=== PATIENT | female | born 1955 | race African-American/Black ===

== ENCOUNTER → 2016-12-18 | Outpatient (CLI) | payer MEDICAID ==
[~2016-12-18] MED LIST: AMARYL2 MG PO; AMLODIPINE BESY10 MG PO; BENADRYL25 MG PO; COZAAR100 MG PO; DAYPRO600 M1 PO; GLIMEPIRIDE1 MG PO; LASIX20 MG PO; LEVOTHYROXINE100 MCG PO; LOPRESSOR PO; LOSARTAN POTAS100 MG PO; METFORMIN HCL500 M1 PO; METOPROLOL TAR100 MG PO; MOBIC PO; OSCAL PLUS D; PERCOCET5/325 PO; PRAVASTATIN SOD40 MG PO; SYNTHROID125 PO; TRADJENTA5 MG PO
--- NOTE | ~2016-12-18 | EKG ---
PATIENT: KATHARINA DOHERTY UNIT #: [id number] Ventricular Rate: 63 BPM Atrial Rate: 63 BPM P-R Interval: 156 ms QRS Duration: 80 ms Q-T Interval: 400 ms QTC Calculation(Bezet): 409 ms P Starford: 16 degrees Calculated R Starford: 7 degrees Calculated T Starford: 62 degrees Diagnosis Line: Normal sinus rhythm Diagnosis Line: Minimal voltage criteria for LVH, may be normal Diagnosis Line: variant Diagnosis Line: Inferior infarct , age undetermined Diagnosis Line: Anterior infarct (cited on or before 11-APR-2016) Diagnosis Line: Abnormal ECG Diagnosis Line: When compared with ECG of 11-APR-2016 12:45, Diagnosis Line: Inferior infarct is now Present Diagnosis Line: Diagnosis Line: Confirmed by JOSE TANG MD[facility] ([id number] on Diagnosis Line: 12/18/2016 2:29:02 PM INTERPRETING MD: KITTY SCHWARZ
[2016-12-18 14:40] LABS: BLOOD UREA NITROGEN 16 mg/dL (9-23); CALCIUM SERUM 8.9 mg/dL (8.4-10.2); CARBON DIOXIDE 26 mmol/L (22-31); CHLORIDE 109 mmol/L (100-111); GLOM FILT RATE Estimated ABOVE60 mL/min (>60); GLUCOSE FASTING 131 mg/dL (70-110); POTASSIUM 3.9 mmol/L (3.5-5.1); SODIUM 140 mmol/L (135-145)
== END | disposition home or self-care (01) ==
LOC: CAMB 12:20
PROVIDERS: Surgery
DX: Z01.818 Encounter for other preprocedural examination (principal); D17.79 Benign lipomatous neoplasm of other sites; I21.19 ST elevation (STEMI) myocardial infarction involving other coronary artery of inferior wall; R94.31 Abnormal electrocardiogram [ECG] [EKG]
CPT/HCPCS: 36415; 80048; 93005

== ENCOUNTER → 2016-12-24 | Day surgery (SDC) | payer MEDICAID ==
--- NOTE | ~2016-12-24 | OR ---
Unit #: [id number] #: [id number] Patient: KATHARINA DOHERTY [id number] [address] [address] [id number] MR#: [id number] NAME: KATHARINA DOHERTY ROOM: Date of Procedure: 12/24/2016 Admission Date: 12/24/2016 Surgeon: Leroy Razo M.D. : 1955 Attending Physician: Quintin Samson M.D. Referring Physician: Quintin Samson M.D. Primary Care Physician: Prachi Rodarte M.D. OPERATIVE REPORT PREOPERATIVE DIAGNOSIS Left upper quadrant subcutaneous mass. POSTOPERATIVE DIAGNOSIS Complex lipoma of left upper quadrant. PROCEDURE PERFORMED Excision of complex lipoma measuring 10 cm x 4 cm multiloculated. MEDICAL DATA ANALYST None. ANESTHESIA General. ESTIMATED BLOOD LOSS 25 mL. IV FLUIDS 500 crystalloid. COMPLICATIONS None. INDICATIONS FOR PROCEDURE The patient is a 61-year-old lady, who presents with enlarging mass in the subcutaneous region under the left ribcage. She presents for local exploration. DESCRIPTION OF PROCEDURE The patient was taken to the operating theater and placed in supine position. Anesthesia was induced. Her abdominal region and chest region were prepped and draped. An incision was then made measuring approximately 10 cm in length. I cut down through the subcutaneous tissue and encountered what appeared to be a lipoma. This was multilobulated and had multiple finger projections. This was excised in its entirety. The total specimen measured approximately 10 x 4 cm. Hemostasis was obtained. I irrigated with normal saline and then placed a Papito-Gilman drain into the bed. I then closed with 3-0 Vicryl and jaren. The patient tolerated the procedure well and sent to the recovery room in good condition. Unit #: [id number] #: [id number] Patient: KATHARINA DOHERTY Dictated by... Jos Mckeon/galdino TD: 12/25/2016 02:15 JOB #: [id number] OPERATIVE REPORT Page 1 of 1 X Leroy Razo MD PROCEDURE OPERATIVE NOTE
== END | disposition home or self-care (01) ==
LOC: CSUR 07:40
DX: D17.1 Benign lipomatous neoplasm of skin and subcutaneous tissue of trunk (principal); E89.0 Postprocedural hypothyroidism; H26.9 Unspecified cataract; I10 Essential (primary) hypertension; E10.9 Type 1 diabetes mellitus without complications; Z85.850 Personal history of malignant neoplasm of thyroid; Z90.710 Acquired absence of both cervix and uterus; Z90.89 Acquired absence of other organs; Z88.8 Allergy status to other drugs, medicaments and biological substances; Z79.899 Other long term (current) drug therapy
CPT/HCPCS: 82947; 88304; J0690; J2250; J3010